=== PATIENT | male | born 1985 | race Caucasian/White ===

== ENCOUNTER 2022-09-16 12:56 | Outpatient (CLI) | payer OTHER, SELFPAY ==
[2022-09-16 18:06] LABS: Vitamin D 25 Hydroxy* 24 ng/mL (30-80)
[2022-09-16 18:39] LABS: Vitamin B12* 903 pg/mL (243-894)
== END 2022-09-16 12:57 | disposition home or self-care (01) ==
PROVIDERS: PCP Family Medicine; Visit Provider Family Medicine
DX: L98.9 Disorder of the skin and subcutaneous tissue, unspecified (principal); M25.531 Pain in right wrist; L71.9 Rosacea, unspecified; J10.1 Influenza due to other identified influenza virus with other respiratory manifestations; S62.109A Fracture of unspecified carpal bone, unspecified wrist, initial encounter for closed fracture
CPT/HCPCS: 82306; 82607; 84443

== ENCOUNTER 2022-09-22 15:04 | Outpatient (CLI) | payer OTHER, SELFPAY ==
[2022-09-22 15:18] LABS: Chloride* 102 mmol/L (96-114); Potassium* 4.4 mmol/L (3.6-5.1); Sodium* 141 mmol/L (135-149)
[2022-09-22 15:20] LABS: Creatinine* 0.9 mg/dL (0.5-1.5); Estimated Glomerular Filt Rate 114 ml/min
[2022-09-22 15:21] LABS: Blood Urea Nitrogen* 14 mg/dL (5-24); Calcium* 9.6 mg/dL (8.4-10.6); Carbon Dioxide* 29 mmol/L (20-32); Glucose* 83 mg/dL (60-115)
== END 2022-09-22 15:05 | disposition home or self-care (01) ==
PROVIDERS: PCP Family Medicine; Visit Provider Family Medicine
DX: R79.89 Other specified abnormal findings of blood chemistry (principal)
CPT/HCPCS: 80048

== ENCOUNTER 2022-10-04 13:32 | Outpatient (CLI) | payer OTHER, SELFPAY ==
[2022-10-04 13:57] LABS: Albumin* 4.6 g/dL (3.3-5.0); Chloride* 103 mmol/L (96-114)
[2022-10-04 13:58] LABS: Sodium* 140 mmol/L (135-149)
[2022-10-04 14:00] LABS: Carbon Dioxide* 29 mmol/L (20-32); Cholesterol* 229 mg/dL (90-199); Estimated Glomerular Filt Rate 101 ml/min
[2022-10-04 14:01] LABS: Alanine Aminotransferase* 38 U/L (4-50); Alkaline Phosphatase* 46 U/L (40-150); Aspartate Amino Transferase* 31 U/L (12-35); Bilirubin Total* 0.7 mg/dL (0.1-1.5); Blood Urea Nitrogen* 11 mg/dL (5-24); Calcium* 9.5 mg/dL (8.4-10.6); Glucose* 95 mg/dL (60-115); Potassium* 4.4 mmol/L (3.6-5.1); Total Protein* 7.7 g/dL (6.0-8.3); Triglycerides* 200 mg/dL (40-149)
[2022-10-04 14:02] LABS: HDL Cholesterol* 37 mg/dL (>=40); LDL Cholesterol Calculated 152 mg/dL (<100)
== END 2022-10-04 13:33 | disposition home or self-care (01) ==
PROVIDERS: PCP Family Medicine; Visit Provider Family Medicine
DX: B35.1 Tinea unguium (principal); L98.9 Disorder of the skin and subcutaneous tissue, unspecified; R79.89 Other specified abnormal findings of blood chemistry
CPT/HCPCS: 80053; 80061